=== PATIENT | male | born 2000 | race Caucasian/White ===

== ENCOUNTER 2023-03-11 03:43 | Emergency (ER) | payer OTHER ==
[~2023-03-11] VITALS: Ht 182.9 cm; Wt 100.0 kg
[2023-03-11 03:58] VITALS: BP 128/85; TEMP 97.8; O2SAT 98
[2023-03-11] MEDS ORDERED: ONDANSETRON 4MG 2ML VIAL As Ordered ONE (03:59)
[2023-03-11] MEDS ORDERED: ONDANSETRON 4MG 2ML VIAL IV ONE (04:00)
== END 2023-03-11 05:01 | disposition home or self-care (01) ==
LOC: M ED 03:43
DX: F10.129 Alcohol abuse with intoxication, unspecified (principal); F17.290 Nicotine dependence, other tobacco product, uncomplicated
CPT/HCPCS: 82077; 96374; 99284; J2405